=== PATIENT | male | born 1990 | race Two or more races ===

== ENCOUNTER → 2024-12-10 | Emergency (ER) | payer BC ==
[~2024-12-10] VITALS: Ht 175.3 cm; Wt 69.4 kg
[2024-12-10 18:17] VITALS: BP 118/82; PULSE 91; RESP 18; O2SAT 100
[2024-12-10 19:06] VITALS: TEMP 98.9
== END | disposition home or self-care (01) ==
LOC: ER 18:14
DX: A04.72 Enterocolitis due to Clostridium difficile, not specified as recurrent (principal)
CPT/HCPCS: 99281